=== PATIENT | male | born 1960 | race Two or more races ===

== ENCOUNTER 2019-08-20 07:37 | Day surgery (SDC) | payer BC ==
[2019-08-20] VITALS (8 sets, daily range): BP systolic 111–139; BP diastolic 58–89
[~2019-08-20] VITALS: Ht 180.3 cm; Wt 99.8 kg
--- NOTE | 2019-08-20 07:19 | Pre-Procedure Note/Attestation ---
Pre-Procedure Note/Attestation Complete Prior to Procedure Planned Procedure: right Procedure Narrative: knee arthroscopic medial menisectomy Indications for Procedure Pre-Operative Diagnosis: right knee medial meniscus tear Attestation I attest that I discussed the nature of the procedure; its benefits; risks and complications; and alternatives (and the risks and benefits of such alternatives ), prior to the procedure, with the patient (or the patient's legal brand representative). I attest that, if there was a reasonable possibility of needing a blood transfusion, the patient (or the patient's legal brand representative) was given the [facility] standardized written summary, pursuant to the Cristhian Karan Blood Safety Act ([place] Health and Safety Code # 1645, as amended). I attest that I re-evaluated the patient just prior to the surgery and that there has been no change in the patient's H&P, except as documented below: Darien Diego MD Aug 20, 2019 07:19
--- NOTE | 2019-08-20 07:19 | Operative Note - PDOC ---
Operative Note Operative Note Pre-op Diagnosis: right knee medial meniscus tear Procedure: see op report Post-op Diagnosis: same as pre-op plus Operative Findings: consistent w/pre-op dx studies Anesthesia: MAC Specimen: none Complications: none Condition: stable Estimated Blood Loss: none Implant(s) used?: No Darien Diego MD Aug 20, 2019 07:19
[~2019-08-20 07:37] MED LIST: ALLOPURINOL300 M1 ORAL; AMLODIPINE BESY10 MG ORAL; ATIVAN0.5 MG ORAL; D5 1/2NS 1,000 ML IV SCH; GLIPIZIDE5 MG ORAL; HYDROcodone/Acetamin 5/325 tab ORAL PRN; HYDROmorphone 1mg/ml Carpuject SUBQ PRN; LOSARTAN POTASS50 MG ORAL; METOPROLOL SUC100 MG ORAL; OMEPRAZOLE40 M1 ORAL; POTASSIUM CITR10 ME1 PO; Tylenol #3 tab (300mg/30mg) ORAL PRN; Vit D3 PO; ceFAZolin 1gm IVPB IVPB ONE; celeBREX 200mg Cap **SURGERY PATIENTS ONLY ORAL ONE; oxyCONTIN 20mg tab ORAL ONE
[2019-08-20] MEDS ORDERED: oxyCONTIN 20mg tab ORAL ONE (08:46)
[2019-08-20] MEDS ORDERED: celeBREX 200mg Cap **SURGERY PATIENTS ONLY ORAL ONE (08:46)
[2019-08-20] MEDS ORDERED: Sodium Chloride 10ml vial INJ ONE (11:25)
[2019-08-20] MEDS ORDERED: Dexamethasone 4mg/ml vial ONE ×2 (11:25→11:45)
[2019-08-20] MEDS ORDERED: Propofol 200mg/20ml IV ONE ×2 (11:25→11:30)
[2019-08-20] MEDS ORDERED: Lidocaine 1% MPF 10mg/ml 5ml ONE ×2 (11:25→11:30)
[2019-08-20] MEDS ORDERED: LR 1000ml 1,000 ML IVLG SCH (11:26)
--- NOTE | 2019-08-20 11:29 | Anethesia Preoperative Eval ---
Anesthesia Pre-op PMH/ROS General Date of Evaluation: Aug 20, 2019 Time of Evaluation: 11:25 Anesthesiologist: Josephine ASA Score: ASA 3 Mallampati Score Class I : Soft palate, uvula, fauces, pillars visible Class II: Soft palate, uvula, fauces visible Class III: Soft palate, base of uvula visible Class IV: Only hard plate visible Mallampati Classification: Class II Surgeon: Johnathon Diagnosis: R Knee Pain Surgical Procedure: R Knee Arthroscopy Anesthesia History: none Family History: no anesthesia problems Allergies: Coded Allergies: VERAPAMIL (Verified Allergy, Intermediate, rash, 08/19/19) Medications: see eMAR Patient NPO?: Yes Past Medical History Cardiovascular: Reports: HTN, other - HL Pulmonary: Reports: asthma Gastrointestinal/Genitourinary: Reports: GERD, CRI Endocrine: Reports: DM PSxH Narrative: Appendectomy, Colon Resection Anesthesia Pre-op Phys. Exam Physician Exam Last Vital Signs Date Time Temp Pulse Resp B/P (MAP) Pulse Ox O2 Delivery O2 Flow Rate FiO2 08/20/19 08:39 Room Air 08/20/19 08:27 98.3 74 20 125/86 96 Constitutional: NAD Neurologic: CN 2-12 intact Cardiovascular: RRR Respiratory: CTA Gastrointestinal: S/NT/ND Airway Exam Mallampati Score: Class II MO: full ROM: full Teeth: missing, intact Anesthesia Pre-op A/P Risk Assessment & Plan Assessment: ASA 3 Plan: GA, SED Status Change Before Surgery: No Pre-Antibiotics Dru Grams Ancef IV Given Within 1 Hr of Incision: Yes Time Given: 11:41 Lorne Burton MD Aug 20, 2019 11:29
[2019-08-20] MEDS ORDERED: oxyCODONE HCL/Acetaminophen 5/325mg ORAL PRN (11:30)
[2019-08-20] MEDS ORDERED: Labetalol 5mg/ml 20ml vial IV PRN (11:30)
[2019-08-20] MEDS ORDERED: Midazolam 2mg/2ml Inj IVP PRN (11:30)
[2019-08-20] MEDS ORDERED: LR 1000ml ONE (11:30)
[2019-08-20] MEDS ORDERED: Ketorolac 30mg Inj IV PRN ×2 (11:30)
[2019-08-20] MEDS ORDERED: Metoclopramide 10mg/2ml Inj IVP PRN (11:30)
[2019-08-20] MEDS ORDERED: HYDROcodone/Acetamin 7.5/325 tab ORAL PRN (11:30)
[2019-08-20] MEDS ORDERED: LORazepam Inj 2mg/ml 1ml IV PRN (11:30)
[2019-08-20] MEDS ORDERED: DiphenhydrAMINE 50mg/ml Inj IVP PRN (11:30)
[2019-08-20] MEDS ORDERED: Hydromorphone 0.5mg/0.5ml inj IVP PRN (11:30)
[2019-08-20] MEDS ORDERED: fentaNYL 100 mcg/2 mL IV PRN (11:30)
[2019-08-20] MEDS ORDERED: Meperidine 50mg/ml Inj(FOR RIGORS ONLY) IVP PRN (11:30)
[2019-08-20] MEDS ORDERED: Acetaminophen (Non formulary) 100 ML IV ONE (11:30)
[2019-08-20] MEDS ORDERED: Atropine Sulfate 0.4mg/ml inj IVP PRN (11:30)
[2019-08-20] MEDS ORDERED: HYDROcodone/Acetamin 5/325 tab ORAL PRN (11:30)
[2019-08-20] MEDS ORDERED: fentaNYL 100 mcg/2 mL IV ONE (11:31)
[2019-08-20] MEDS ORDERED: Kenalog-40 1ml Vial ONE (11:38)
[2019-08-20] MEDS ORDERED: Bupivacaine 0.25% Inj 30ml INJ ONE (11:38)
[2019-08-20] MEDS ORDERED: Duramorph PF 5mg/10ml amp ONE (11:38)
[2019-08-20] MEDS ORDERED: Lidocaine 1% 10mg/ml/Epi 0.005mg/ml 30ml vial INJ ONE (11:39)
[2019-08-20] MEDS ORDERED: Ketorolac 30mg Inj IM ONE (11:47)
[2019-08-20] MEDS ORDERED: Duramorph PF 5mg/10ml amp EPIDUR ONE (11:47)
[2019-08-20] MEDS ORDERED: EPINEPHrine 1mg/1ml Amp ONE (11:48)
[2019-08-20] MEDS ORDERED: Albuterol 90mcg Inhaler 8gm INH ONE (11:59)
--- NOTE | 2019-08-20 12:29 | Immediate Post-Op Evaluation ---
Immediate Post-Op Evalulation Immediate Post-Op Evalulation Procedure: R Knee Arthroscopy Date of Evaluation: Aug 20, 2019 Time of Evaluation: 12:42 IV Fluids: 1000 LR Blood Products: 0 Estimated Blood Loss: 14 Urinary Output: 0 Blood Pressure Systolic: 139 Blood Pressure Diastolic: 85 Pulse Rate: 69 Respiratory Rate: 16 O2 Sat by Pulse Oximetry: 100 Temperature (Fahrenheit): 97.7 Pain Score (1-10): 2 Nausea: No Vomiting: No Complications 0 Patient Status: awake, reacts, patent, none Hydration Status: adequate Dru Grams Ancef IV Given Within 1 Hr of Incision: Yes Time Given: 11:41 Lorne Burton MD Aug 20, 2019 12:29
--- NOTE | 2019-08-20 12:30 | 48 Hour Post Anesthesia Eval ---
Post Anesthesia Evaluation Procedure: R Knee Arthroscopy Date of Evaluation: Aug 20, 2019 Time of Evaluation: 14:52 Blood Pressure Systolic: 134 0: 81 Pulse Rate: 69 Respiratory Rate: 16 Temperature (Fahrenheit): 98.2 O2 Sat by Pulse Oximetry: 100 Airway: patent Nausea: No Vomiting: No Pain Intensity: 2 Hydration Status: adequate Cardiopulmonary Status: Stable Mental Status/LOC: patient returned to baseline Follow-up Care/Observations: 0 Post-Anesthesia Complications: 0 Follow-up care needed: ready to discharge Lorne Burton MD Aug 20, 2019 12:30
--- NOTE | 2019-08-20 19:45 | Operative Note - Dictated ---
DATE OF OPERATION: 08/20/2019 PREOPERATIVE DIAGNOSIS: Right knee medial meniscus tear. POSTOPERATIVE DIAGNOSIS: Right knee medial meniscus tear. PROCEDURES: 1. Right knee arthroscopy and partial medial meniscectomy. 2. Synovectomy medial and lateral patellofemoral compartment. SURGEON: Darien Diego M.D. ANESTHESIA: MAC. INDICATION FOR PROCEDURE: The patient is a pleasant 59-year-old gentleman who had right knee pain. He had an MRI which showed meniscal tear. He had significant pain, failed conservative treatment; therefore elected to undergo right knee arthroscopic medial meniscectomy. Risks, limitations, expectations, complications of procedure were discussed in detail. All questions addressed. DESCRIPTION OF PROCEDURE: After informed consent was obtained, the patient was brought to the operating room. The patient was placed under monitored anesthesia control. Right leg was prepped and draped in a sterile manner. Time-out was performed. Inferolateral stab incision was then made. Trocar was introduced into the knee joint. Systematic tore of the knee was performed. There was hypertrophic synovial tissue in the medial plica noticed. Plica made it difficulty entering the medial compartment. Medial working portal was established. Synovectomy of the anterior portion of the medial compartment, intercondylar notch, lateral compartment was performed. Medial compartment was entered. The anterior horn and middle body looked intact. There was some tearing of the posterior horn medial meniscus. The joint was pretty tight; therefore shaver was then placed along the posterior horn and partial meniscectomy. The inferior portion of the tear was performed. The remaining meniscus was intact. The ACL was probed and noted to be intact. Lateral compartment was entered, free of any meniscal chondral damage. At this point, the camera was repositioned into patellofemoral compartment. Synovectomy and excision of medial plica was completed. Once this was done, the instruments were removed. Portal sites were closed with 3-0 Monocryl sutures. Steri-Strips and a sterile dressing were applied. ESTIMATED BLOOD LOSS: None. COMPLICATIONS: None. SPECIMENS: None. Darien Diego M.D. DR: Augustine JOB#: [id number] CC: CARL
== END 2019-08-20 14:05 | disposition home or self-care (01) ==
LOC: SUR 07:37
DX: S83.241A Other tear of medial meniscus, current injury, right knee, initial encounter (principal); E11.9 Type 2 diabetes mellitus without complications; I10 Essential (primary) hypertension; K21.9 Gastro-esophageal reflux disease without esophagitis; Z88.8 Allergy status to other drugs, medicaments and biological substances; Z90.89 Acquired absence of other organs; X58.XXXA Exposure to other specified factors, initial encounter
CPT/HCPCS: 29876; 29881; 82962; J0131; J0171; J0690; J1100; J1885; J2250; J2405; J2704; J3010; J3301; J3490; J7120; 94003; 94150